=== PATIENT | male | born 1960 | race African-American/Black ===

== ENCOUNTER 2020-06-01 14:48 | Emergency (ER) | payer MEDICAID, OTHER ==
[~2020-06-01] VITALS: Ht 170.2 cm; Wt 68.0 kg
[~2020-06-01 14:48] MED LIST: ASPI-1160 PO; ATOR20TA PO; Lisinopril PO
[2020-06-01] MEDS ORDERED: TRAMADOL 50MG TABLET PO ONE (16:30)
[2020-06-01] MEDS ORDERED: IBUPROFEN 600MG TABLET PO ONE (16:30)
[2020-06-01 19:26] VITALS: BP 114/73
[2020-06-04] MEDS ORDERED: ASPI-1160 PO (12:17)
[2020-06-04] MEDS ORDERED: ATOR20TA PO (12:17)
== END 2020-06-01 19:47 | disposition home or self-care (01) ==
LOC: ER 14:53
DX: G44.209 Tension-type headache, unspecified, not intractable (principal); I10 Essential (primary) hypertension; F12.10 Cannabis abuse, uncomplicated; Z86.73 Personal history of transient ischemic attack (TIA), and cerebral infarction without residual deficits; Z79.82 Long term (current) use of aspirin
CPT/HCPCS: 93005; 99284

== ENCOUNTER 2020-06-30 17:13 | Emergency (ER) | payer MEDICAID ==
[~2020-06-30] VITALS: Ht 160 cm; Wt 68.0 kg
[2020-06-30] MEDS ORDERED: ONDANSETRON 4MG ODT PO STA (17:59)
[2020-06-30 18:21] LABS: BASOPHILS % 0.6 % (0.0-2.0); HEMATOCRIT. 36.9 % (42.0-52.0); HEMOGLOBIN. 12.8 g/dL (14.0-18.0); LYMPHOCYTES % 26.3 % (20.0-50.0); MEAN CORPUSCULAR HEMOGLOBIN 33.5 pg (28.0-32.0); MEAN CORPUSCULAR VOLUME 96.3 fL (80.0-94.0); MEAN PLATELET VOLUME 7.8 fl (7.4-10.4); NEUTROPHILS % 59.1 % (40.0-76.0); PLATELET 198 x1000/uL (130-400); RED BLOOD CELL COUNT 3.83 mill/uL (4.7-6.1)
[2020-06-30 18:29] LABS: CHLORIDE 100 mEq/L (98-107)
[2020-06-30 18:35] LABS: CLARITY URINE CLEAR (CLEAR); COLOR URINE YELLOW (YELLOW); KETONES URINE NEGATIVE (NEGATIVE); LEUKOCYTE ESTERASE URINE NEGATIVE (NEGATIVE); NITRITE URINE NEGATIVE (NEGATIVE); OCCULT BLOOD URINE NEGATIVE (NEGATIVE); PH URINE 6.5 (4.5-8.0); PROTEIN URINE NEGATIVE (NEGATIVE); SPECIFIC GRAVITY URINE 1.008 (1.005-1.030); UROBILINOGEN URINE 0.2 E.U./dL (0.2-1.0)
[2020-06-30 20:07] VITALS: BP 120/80
== END 2020-06-30 20:07 | disposition home or self-care (01) ==
LOC: ER 17:13
DX: R11.2 Nausea with vomiting, unspecified (principal); R07.89 Other chest pain; Z96.659 Presence of unspecified artificial knee joint; Z98.890 Other specified postprocedural states; Z86.79 Personal history of other diseases of the circulatory system; Z86.73 Personal history of transient ischemic attack (TIA), and cerebral infarction without residual deficits; Z79.899 Other long term (current) drug therapy
CPT/HCPCS: 36415; 80053; 81003; 83690; 84484; 85025; 93005; 99284; Q0162

== ENCOUNTER 2021-02-16 14:42 | Emergency (ER) | payer MEDICAID ==
[~2021-02-16] VITALS: Ht 172.7 cm; Wt 69.0 kg
[2021-02-16] MEDS ORDERED: KETOROLAC 30MG/ML VIAL IM ONE (15:45)
[2021-02-16] MEDS ORDERED: TRAM50TA94 MT (16:54)
[2021-02-16] MEDS ORDERED: ONDANSETRON 4MG ODT PO ONE (17:00)
[2021-02-16 17:04] VITALS: BP 120/78
== END 2021-02-16 17:04 | disposition home or self-care (01) ==
LOC: ER 14:42
DX: M54.89 Other dorsalgia (principal); I10 Essential (primary) hypertension; Z86.73 Personal history of transient ischemic attack (TIA), and cerebral infarction without residual deficits
CPT/HCPCS: 96372; 99283; J1885; Q0162

== ENCOUNTER 2021-07-28 23:19 | Emergency (ER) | payer MEDICAID, OTHER ==
[~2021-07-28] VITALS: Ht 170.2 cm; Wt 68.0 kg
[~2021-07-28 23:19] MED LIST changes: -Lisinopril PO; +TRAM50TA94 MT
[2021-07-29] MEDS ORDERED: METOCLOPRAMIDE HCL 10MG/2ML VIAL IV ONE (01:30)
[2021-07-29] MEDS ORDERED: DIPHENHYDRAMINE 50MG/ML VIAL IV ONE (01:30)
[2021-07-29] MEDS ORDERED: NAPR375T5 MT (03:11)
[2021-07-29] MEDS ORDERED: ONDA4TAB11 PO (03:11)
[2021-07-29 03:48] VITALS: BP 101/66
== END 2021-07-29 03:47 | disposition home or self-care (01) ==
LOC: ER 23:19
DX: R51.9 Headache, unspecified (principal); I10 Essential (primary) hypertension; E78.00 Pure hypercholesterolemia, unspecified; Z86.73 Personal history of transient ischemic attack (TIA), and cerebral infarction without residual deficits
CPT/HCPCS: 96374; 96375; 99284; J1200; J2765; Z7610

== ENCOUNTER 2021-09-03 15:47 | Emergency (ER) | payer MEDICAID ==
[~2021-09-03] VITALS: Ht 175.3 cm; Wt 68.0 kg
[~2021-09-03 15:47] MED LIST changes: +NAPR375T5 MT; +ONDA4TAB11 PO
[2021-09-03 15:50] VITALS: BP 124/76
== END 2021-09-03 17:06 | disposition home or self-care (01) ==
LOC: ER 15:47
DX: S63.286A Dislocation of proximal interphalangeal joint of right little finger, initial encounter (principal); W19.XXXA Unspecified fall, initial encounter; Y93.89 Activity, other specified; Y92.89 Other specified places as the place of occurrence of the external cause; Y99.8 Other external cause status; E78.00 Pure hypercholesterolemia, unspecified; I10 Essential (primary) hypertension
CPT/HCPCS: 26770; 73140; 99284

== ENCOUNTER 2021-10-22 18:38 | Emergency (ER) | payer MEDICAID ==
[~2021-10-22] VITALS: Ht 170.2 cm; Wt 64.0 kg
[2021-10-22] MEDS ORDERED: CYCLOBENZAPRINE 10MG TABLET PO ONE (18:45)
[2021-10-22] MEDS ORDERED: ACETAMINOPHEN 325MG TABLET PO STA (18:45)
[2021-10-22] MEDS ORDERED: FAMOTIDINE 20MG TABLET PO ONE (18:45)
[2021-10-22 19:35] LABS: BASOPHILS % 0.5 % (0.0-2.0); EOSINOPHILS % 3.2 % (0.0-5.0); HEMATOCRIT. 42.2 % (42.0-52.0); HEMOGLOBIN. 14.1 g/dL (14.0-18.0); LYMPHOCYTES % 23.3 % (20.0-50.0); MEAN CORPUSCULAR HEMOGLOBIN 32.3 pg (28.0-32.0); MEAN CORPUSCULAR VOLUME 96.3 fL (80.0-94.0); MEAN PLATELET VOLUME 7.9 fl (7.4-10.4); MONOCYTES % 11.2 % (2.0-8.0); NEUTROPHILS % 61.8 % (40.0-76.0); PLATELET 263 x1000/uL (130-400); RED BLOOD CELL COUNT 4.38 mill/uL (4.7-6.1); RED CELL DISTRIBUTION WIDTH 13.3 % (11.6-14.6)
[2021-10-22 19:40] LABS: CHLORIDE 103 mEq/L (98-107)
[2021-10-22 19:44] LABS: CLARITY URINE CLEAR (CLEAR); COLOR URINE YELLOW (YELLOW); KETONES URINE NEGATIVE (NEGATIVE); LEUKOCYTE ESTERASE URINE NEGATIVE (NEGATIVE); NITRITE URINE NEGATIVE (NEGATIVE); OCCULT BLOOD URINE NEGATIVE (NEGATIVE); PH URINE 8.5 (4.5-8.0); PROTEIN URINE NEGATIVE (NEGATIVE); SPECIFIC GRAVITY URINE 1.008 (1.005-1.030); UROBILINOGEN URINE 0.2 E.U./dL (0.2-1.0)
[2021-10-22] MEDS ORDERED: ONDANSETRON HCL 4MG/2ML INJ IV NR (21:15)
[2021-10-22] MEDS ORDERED: SODIUM CHLORIDE 0.9% 1,000 ML IV NR (21:15)
[2021-10-22 21:45] VITALS: BP 113/73
[2021-10-22] MEDS ORDERED: ONDA4TAB5 MT (22:12)
[2021-10-22] MEDS ORDERED: IOHEXOL-300 100 ML BOTTLE ONE (23:12)
== END 2021-10-22 21:05 | disposition home or self-care (01) ==
LOC: ER 18:38
DX: R10.32 Left lower quadrant pain (principal); R11.2 Nausea with vomiting, unspecified; R51.9 Headache, unspecified; Z20.822 Contact with and (suspected) exposure to COVID-19; E78.00 Pure hypercholesterolemia, unspecified; I95.9 Hypotension, unspecified; Z79.899 Other long term (current) drug therapy
CPT/HCPCS: 36415; 74177; 80053; 81003; 83690; 85025; 87426; 96361; 96374; 99285; J2405; Q9967

== ENCOUNTER 2022-02-27 18:12 | Emergency (ER) | payer MEDICAID, OTHER ==
[~2022-02-27] VITALS: Ht 170.2 cm; Wt 66.0 kg
[~2022-02-27 18:12] MED LIST changes: +ONDA4TAB5 MT
[2022-02-27] MEDS ORDERED: NITROGLYCERIN 0.4MG TABLET SL SL PRN (18:45)
[2022-02-27] MEDS ORDERED: ASPIRIN 81MG TABLET PO ONE (18:45)
[2022-02-27 19:00] LABS: BASOPHILS % 0.2 % (0.0-2.0); EOSINOPHILS % 1.5 % (0.0-5.0); HEMATOCRIT. 42.5 % (42.0-52.0); HEMOGLOBIN. 14.9 g/dL (14.0-18.0); LYMPHOCYTES % 20.4 % (20.0-50.0); MEAN CORPUSCULAR HEMOGLOBIN 33.8 pg (28.0-32.0); MEAN CORPUSCULAR VOLUME 96.6 fL (80.0-94.0); MEAN PLATELET VOLUME 7.9 fl (7.4-10.4); MONOCYTES % 8.2 % (2.0-8.0); NEUTROPHILS % 69.7 % (40.0-76.0); PLATELET 204 x1000/uL (130-400); RED BLOOD CELL COUNT 4.39 mill/uL (4.7-6.1); RED CELL DISTRIBUTION WIDTH 13.3 % (11.6-14.6)
[2022-02-27 19:06] LABS: CHLORIDE 98 mEq/L (98-107)
[2022-02-27] MEDS ORDERED: ONDANSETRON HCL 4MG/2ML INJ IV STA (20:29)
[2022-02-27] MEDS ORDERED: MORPHINE SULFATE 4 MG/ML CPJ (NOT FOR IM USE) IV STA (20:29)
[2022-02-27] MEDS ORDERED: MORPHINE SULFATE 4 MG/ML CPJ (NOT FOR IM USE) IV NR (22:15)
[2022-02-27] MEDS ORDERED: ONDANSETRON HCL 4MG/2ML INJ IV NR (22:15)
[2022-02-28 00:32] VITALS: BP 119/78
== END 2022-02-28 00:46 | disposition short-term general hospital (02) ==
LOC: ER 18:12
DX: R07.89 Other chest pain (principal); R94.31 Abnormal electrocardiogram [ECG] [EKG]; I10 Essential (primary) hypertension; E78.00 Pure hypercholesterolemia, unspecified; Z87.891 Personal history of nicotine dependence
CPT/HCPCS: 36415; 71045; 80053; 83880; 84484; 85025; 85379; 87426; 93005; 96374; 96375; 99285; J2270; J2405

== ENCOUNTER 2022-03-17 18:58 | Emergency (ER) | payer MEDICAID ==
[~2022-03-17] VITALS: Ht 167.6 cm; Wt 72.0 kg
[2022-03-17 19:00] VITALS: BP 116/75
[2022-03-17] MEDS ORDERED: TETRACAINE 0.5% OPHTH DROPS 4ML RIGHTEYE ONE (19:15)
[2022-03-17] MEDS ORDERED: FLUORESCEIN SODIUM 1MG/STRIP RIGHTEYE ONE (19:45)
[2022-03-17] MEDS ORDERED: PIPERACILLIN/TAZ 3.375G PREMIX 50 ML IV ONE (20:30)
[2022-03-17] MEDS ORDERED: VANCOMYCIN 1G PREMIX 200 ML IV ONE (20:30)
[2022-03-17] MEDS ORDERED: acyclovir RIGHTEYE (20:59)
[2022-03-17] MEDS ORDERED: VALA100044 PO (20:59)
== END 2022-03-17 21:00 | disposition home or self-care (01) ==
LOC: ER 18:58
DX: B02.9 Zoster without complications (principal); H53.8 Other visual disturbances; Z86.73 Personal history of transient ischemic attack (TIA), and cerebral infarction without residual deficits
CPT/HCPCS: 76512; 87804; 96365; 96368; 99284; J2543; J3370

== ENCOUNTER 2022-03-19 18:15 | Emergency (ER) | payer MEDICAID ==
[~2022-03-19] VITALS: Ht 170.2 cm; Wt 66.0 kg
[~2022-03-19 18:15] MED LIST changes: +VALA100044 PO; +acyclovir RIGHTEYE
[2022-03-19] MEDS ORDERED: ONDANSETRON 4MG ODT PO ONE (22:15)
[2022-03-19] MEDS ORDERED: HYDROCODONE/ACETAMINOPHEN 5/325MG TABLET PO ONE (22:15)
[2022-03-19] MEDS ORDERED: NAPR-1176 MT (23:50)
[2022-03-19] MEDS ORDERED: ONDA4TAB50 MT (23:50)
[2022-03-20] VITALS: BP 140/78
== END 2022-03-20 02:06 | disposition home or self-care (01) ==
LOC: ER 18:15
DX: B02.9 Zoster without complications (principal); R51.9 Headache, unspecified; R11.10 Vomiting, unspecified; E78.00 Pure hypercholesterolemia, unspecified; Z79.899 Other long term (current) drug therapy
CPT/HCPCS: 99283; Q0162

== ENCOUNTER 2022-09-11 23:13 | Emergency (ER) | payer MEDICAID, OTHER ==
[~2022-09-11] VITALS: Ht 170.2 cm; Wt 71.0 kg
[~2022-09-11 23:13] MED LIST changes: +NAPR-1176 MT; +ONDA4TAB50 MT
[2022-09-11 23:26] VITALS: BP 136/70
[2022-09-12] MEDS ORDERED: CYCLOBENZAPRINE 10MG TABLET PO ONE (00:30)
[2022-09-12] MEDS ORDERED: IBUPROFEN 600MG TABLET PO ONE (00:30)
[2022-09-12] MEDS ORDERED: NAPR-1176 MT (01:15)
[2022-09-12] MEDS ORDERED: CYCL10TA21 MT (01:15)
== END 2022-09-12 01:53 | disposition home or self-care (01) ==
LOC: ER 23:13
DX: S29.011A Strain of muscle and tendon of front wall of thorax, initial encounter (principal); X50.0XXA Overexertion from strenuous movement or load, initial encounter; Y93.89 Activity, other specified; Y92.89 Other specified places as the place of occurrence of the external cause
CPT/HCPCS: 71045; 99283

== ENCOUNTER 2022-11-10 16:08 | Emergency (ER) | payer MEDICAID, OTHER ==
[~2022-11-10] VITALS: Ht 170.2 cm; Wt 68.0 kg
[~2022-11-10 16:08] MED LIST changes: +CYCL10TA21 MT
[2022-11-10 16:14] VITALS: BP 112/72
[2022-11-10] MEDS ORDERED: LIDOCAINE HCL/PF 1% 10 MG/ML 5ML VIAL INFIL ONE (19:00)
[2022-11-10] MEDS ORDERED: BACITRACIN ZINC OINT UDPKT TOP ONE (19:00)
== END 2022-11-10 20:38 | disposition home or self-care (01) ==
LOC: ER 16:08
DX: S61.215A Laceration without foreign body of left ring finger without damage to nail, initial encounter (principal); W26.8XXA Contact with other sharp object(s), not elsewhere classified, initial encounter; Y93.89 Activity, other specified; Y92.89 Other specified places as the place of occurrence of the external cause
CPT/HCPCS: 12001; 99282; J3490; Z7610

== ENCOUNTER 2023-05-05 20:36 | Emergency (ER) | payer MEDICAID, OTHER ==
[~2023-05-05] VITALS: Ht 177.8 cm; Wt 65.0 kg
[2023-05-05 20:40] VITALS: BP 106/69; PULSE 79; RESP 20; TEMP 96.3; O2SAT 100
== END 2023-05-06 01:37 | disposition home or self-care (01) ==
LOC: ER 20:36
DX: R07.0 Pain in throat (principal); Z79.899 Other long term (current) drug therapy
CPT/HCPCS: 70360; 71045; 99284

== ENCOUNTER 2024-06-23 22:56 | Emergency (ER) | payer OTHER ==
[~2024-06-23] VITALS: Ht 172.7 cm; Wt 69.0 kg
[2024-06-23] MEDS: ACETAMINOPHEN 1000MG/100ML 100 ML IV ONE (01:05)
[~2024-06-23 22:56] MED LIST changes: +ONDA-239 PO; -ONDA4TAB11 PO
[2024-06-23 22:59] VITALS: O2SAT 98
[2024-06-23 23:29] LABS: BASOPHILS % 0.5 % (0.0-2.0); EOSINOPHILS % 2.7 % (0.0-5.0); HEMATOCRIT. 40.6 % (42.0-52.0); HEMOGLOBIN. 14.1 g/dL (14.0-18.0); LYMPHOCYTES % 36.8 % (20.0-50.0); MEAN CORPUSCULAR HEMOGLOBIN 34.5 pg (28.0-32.0); MEAN CORPUSCULAR HGB CONC 34.8 g/dL (31.0-37.0); MEAN PLATELET VOLUME 6.9 fl (7.4-10.4); MONOCYTES % 7.1 % (2.0-8.0); NEUTROPHILS % 52.9 % (40.0-76.0); PLATELET 221 x1000/uL (130-400); RED CELL DISTRIBUTION WIDTH 13.5 % (11.6-14.6); WHITE BLOOD COUNT 8.7 x1000/uL (4.5-11.0)
[2024-06-23 23:43] LABS: CHLORIDE 103 mEq/L (98-107); POTASSIUM 3.9 mEq/L (3.5-5.1); SODIUM 133 mEq/L (136-145)
[2024-06-23 23:44] LABS: CARBON DIOXIDE 22 mEq/L (21-32)
[2024-06-23 23:45] LABS: CALCIUM 8.9 mg/dL (8.7-10.4); PROTHROMBIN TIME 11.3 sec (9.6-11.0)
[2024-06-23 23:49] LABS: CREATININE 0.8 mg/dL (0.6-1.3); GLUCOSE 84 mg/dL (70-105); UREA NITROGEN BLOOD 6 mg/dL (9-23)
[2024-06-23 23:51] LABS: ALANINE AMINOTRANSFERASE 22 IU/L (10-49); ALBUMIN 4.4 g/dL (3.2-4.8); ASPARTATE AMINOTRANSFERASE 33 IU/L (<34)
[2024-06-23 23:52] LABS: BILIRUBIN DIRECT 0.1 mg/dL (<=3.0); BILIRUBIN TOTAL 0.4 mg/dL (0.1-1.0); PROTEIN TOTAL 7.2 g/dL (6.0-8.3)
[2024-06-24 00:02] LABS: CLARITY URINE CLEAR (CLEAR); COLOR URINE YELLOW (YELLOW); GLUCOSE URINE NEGATIVE (NEGATIVE); KETONES URINE NEGATIVE (NEGATIVE); LEUKOCYTE ESTERASE URINE NEGATIVE (NEGATIVE); NITRITE URINE NEGATIVE (NEGATIVE); OCCULT BLOOD URINE NEGATIVE (NEGATIVE); PH URINE 6.5 (4.5-8.0); PROTEIN URINE NEGATIVE (NEGATIVE); SPECIFIC GRAVITY URINE 1.004 (1.005-1.030); UROBILINOGEN URINE 0.2 E.U./dL (0.2-1.0)
[2024-06-24] MEDS ORDERED: ACET-2708 MT (02:42)
[2024-06-24 02:54] VITALS: BP 114/72; PULSE 82; RESP 13; TEMP 36.72516; O2SAT 100
[2024-06-24] MEDS: IOHEXOL-300 100 ML BOTTLE ONE (03:17)
== END 2024-06-24 02:51 | disposition home or self-care (01) ==
LOC: ER 22:56
DX: S30.1XXA Contusion of abdominal wall, initial encounter (principal); Z79.899 Other long term (current) drug therapy; Z00.00 Encounter for general adult medical examination without abnormal findings; X58.XXXA Exposure to other specified factors, initial encounter; Y93.89 Activity, other specified; Y92.89 Other specified places as the place of occurrence of the external cause; Y99.8 Other external cause status
CPT/HCPCS: 80076; 80048; 81003; 83690; 85025; 85610; 36415; 96365; 99285; 74177; Z7610 ×3; Q9967; J0131

== ENCOUNTER 2024-11-04 13:16 | Emergency (ER) | payer OTHER ==
[~2024-11-04] VITALS: Ht 170.2 cm; Wt 54.4 kg
[~2024-11-04 13:16] MED LIST changes: +ACET-2708 MT; +NAPR-1494 MT; -NAPR375T5 MT
[2024-11-04 13:33] VITALS: O2SAT 98
[2024-11-04] MEDS: IBUPROFEN 600MG TABLET PO ONE (15:09)
[2024-11-04 17:31] VITALS: BP 140/87; PULSE 80; RESP 18; TEMP 37.2; O2SAT 98
== END 2024-11-04 17:32 | disposition home or self-care (01) ==
LOC: ER 13:16
DX: S39.012A Strain of muscle, fascia and tendon of lower back, initial encounter (principal); S30.0XXA Contusion of lower back and pelvis, initial encounter; Z79.1 Long term (current) use of non-steroidal anti-inflammatories (NSAID); Z79.624 Long term (current) use of inhibitors of nucleotide synthesis; Z79.82 Long term (current) use of aspirin; Z79.899 Other long term (current) drug therapy; W19.XXXA Unspecified fall, initial encounter; Y93.89 Activity, other specified; Y92.89 Other specified places as the place of occurrence of the external cause; Y99.8 Other external cause status
CPT/HCPCS: 72100; 72220; 99284